=== PATIENT | female | born 1950 | race Caucasian/White ===

== ENCOUNTER → 2016-10-18 | Outpatient (CLI) | payer MEDICARE, BC ==
--- NOTE | 2016-10-18 09:13 | MR ---
MRI CERVICAL SPINE: MRI LUMBAR SPINE: CLINICAL HISTORY: Cervicalgia, cervical disc degeneration C5-C6 level, cervical disc degeneration C6- C7 level, cervical region spondylolisthesis, spondylosis without myelopathy cervical region all per o rder. Low back pain, lumbar radiculopathy, lumbar region intervertebral disc degeneration, lumbar reg ion spondylolisthesis, and lumbosacral regions spondylosis without myelopathy all per order. Headache with neck pain and stiffness for years causing pain or weakness in both arms per patient, history of whiplash injury. Low back pain and stiffness for 4 months causing pain into bilateral lower extremit ies diffusely per patient. TECHNIQUE: Multiplanar, multisequence imaging of the cervical and lumbar spine are performed without IV contrast. COMPARISON: CT abdomen and pelvis January 07, 2013. FINDINGS: C-SPINE: Sagittal images of the cervical spine show the craniocervical junction to appear within normal limits . The cervical and upper thoracic spinal cord is normal in course, caliber, and signal. There is str aightening of cervical spine with slight grade 1 retrolisthesis of C5 on C6. Slight dextroconvex scol iotic positioning is present centered near the cervical thoracic junction. The vertebral body height s are normal. There is mild to moderate disc space narrowing C5-C6 and C6-C7 levels. Mild to moderate anterior spurring is present at these levels. The bone marrow signal intensity is within normal limi ts. Axial images show the C2-C3 level to appear within normal limits. Axial images at C3-C4 level show uncovertebral facet degenerative changes bilaterally causing mild to moderate bilateral neural foraminal narrowing. Axial images at C4-C5 level show uncovertebral facet degenerative changes bilaterally causing mild to moderate left-sided neural foraminal narrowing. There is focal left paracentral disc protrusion effa cing anterolateral thecal sac also identified. Right-sided neural foramen is patent. Axial images at the C5-C6 level shows small broad-based central disc protrusion mildly effacing anter ior thecal sac, there is mild left-sided neural foraminal narrowing seen. Right-sided neural foramen is patent. Axial images at C6-C7 level show broad-based left paracentral disc protrusion mildly effacing anterio r thecal sac and causing moderate left-sided neural foraminal narrowing. Right-sided neural foramen i s patent. Axial images at C7-T1 level are felt within normal limits. IMPRESSION: Loss of normal cervical curvature with multilevel degenerative changes seen most promine nt in mid to lower cervical spine as detailed above. L-SPINE: FINDINGS: Sagittal images of the lumbar spine show vertebral body heights and alignment to appear sat isfactory. Multilevel disc desiccation is present. There is moderate disc space narrowing L4-L5 level most pronounced right of midline. Mild to moderate spurring with heterogeneous increased T1 and T2 s ignal consistent with Modic type II degenerative changes seen anteriorly. Posterior disc herniation i s seen at this level on sagittal images effacing anterior thecal sac. The conus medullaris is normal in position and signal ending at inferior L1 vertebral body level. Axial images show at T12-L1, L1-L2, and L2-L3 levels all to appear within normal limits. Axial images at L3-L4 level show mild to moderate broad disc bulge with slightly more prominent left lateral protrusion component minimally effacing the anterior thecal sac. There is mild facet degenera tive changes and ligamentum flavum hypertrophy. There is mild left-sided neural foraminal narrowing. Right-sided neural foramen is patent. Axial images at the L4-L5 level show mild to moderate facet degenerative changes and ligamentum flavu m hypertrophy effacing the posterior lateral thecal sac. There is broad-based right paracentral/dinorah inal disc protrusion effacing the anterolateral thecal sac. There is mild left-sided anterior inferio r neural foraminal narrowing seen. There is more moderate right-sided neural foraminal narrowing note d. Effacement of extraforaminal right L4 nerve is suspected seen best on axial image 8. Axial images at the L5-S1 level show mild facet degenerative changes bilaterally. There is central di sc protrusion minimally effacing the anterior thecal sac. Bilateral neural foramina remain patent. Some small simple appearing parapelvic cysts are present centrally in the left kidney. IMPRESSION: Multilevel degenerative changes in the mid to lower lumbar spine as detailed above, most prominent findings are L4-L5 level where concentric disc herniation is believed to be effacing extraf oraminal right L4 nerve.
== END | disposition home or self-care (01) ==
LOC: RADMRIMAIN 08:05
PROVIDERS: ATTEND Orthopaedic Surgery Orthopaedic Surgery of the Spine
DX: M47.812 Spondylosis without myelopathy or radiculopathy, cervical region (principal); M51.26 Other intervertebral disc displacement, lumbar region; M47.817 Spondylosis without myelopathy or radiculopathy, lumbosacral region
CPT/HCPCS: 72141; 72148

== ENCOUNTER 2016-10-28 00:39 | Emergency (ER) | payer MEDICARE, BC ==
[2016-10-28 00:54] VITALS: TEMP 98.5
--- NOTE | 2016-10-28 01:39 | ED ---
Abdominal Pain HPI - General Chief Complaint: Abdominal Pain Stated Complaint: Abdominal Pain Time Seen by Provider: 10/28/16 00:56 Source: patient, RN notes reviewed Mode of arrival: ambulatory Limitations: no limitations - History of Present Illness Initial Comments: Patient is a 65-year-old female presents to the emergency room for evaluation of abdominal pain. Patient states she hasn't had a normal bowel movement since Friday or . Patient states the past few days she's been having sharp /cramping diffuse abdominal pain. Patient also states that she has a history of diverticulitis. Patient states her last episode of diverticulitis was in June. Patient states she is nauseous but denies any vomiting. Patient states that she went to bed and woke up in the middle the night with intense sharp pain in her abdomen. Patient denies pain or burning during urination, trouble urinating or blood in the urine. Patient denies back pain. Patient denies chest pain or shortness of breath. Patient denies any fevers or chills. Patient states she's been drinking a lot of water with no relief of symptoms. Patient states she took MiraLAX 2 days ago with no relief of symptoms. Patient states usually takes Citrucel at night. Patient states she has a history of hysterectomy. Patient denies any other abdominal surgeries. Patient denies history of bowel obstructions. - Related Data Home Medications Medication Instructions Recorded Confirmed Aspirin 81 mg PO WEEKLY 04/22/14 06/29/16 Estradiol 0.5 mg PO DAILY 04/22/14 06/29/16 Levothyroxine Sodium [Synthroid] 125 mcg PO DAILY 04/22/14 06/29/16 Omeprazole [PriLOSEC] 20 mg PO AC-BRKFST 04/22/14 06/29/16 Simvastatin [Zocor] 40 mg PO HS 04/22/14 06/29/16 Ibuprofen [Motrin] 200 - 400 mg PO Q6HR PRN 04/27/14 06/29/16 Previous Rx's Medication Instructions Recorded Butalbital/Aspirin/Caffeine 1 each PO Q4-6H PRN #20 capsule 06/29/16 [Fiorinal 50-325-40 mg Capsule] Ondansetron Odt [Zofran ODT] 4 mg PO Q8HR PRN #5 tab 10/15/16 Allergies Allergy/AdvReac Type Severity Reaction Status Date / Time Sulfa (Sulfonamide Allergy Rash/Hives Verified 10/28/16 00:54 Antibiotics) Review of Systems ROS Statement: Those systems with pertinent positive or pertinent negative responses have been documented in the HPI. ROS Other: All systems not noted in ROS Statement are negative. Past Medical History Past Medical History: CVA/TIA, Hyperlipidemia Additional Past Medical History / Comment(s): Diverticulitis History of Any Multi-Drug Resistant Organisms: None Reported Past Surgical History: Hysterectomy Additional Past Surgical History / Comment(s): Laparoscopy for adhesions and scar tissue; right ovary and tube removal for ovarian cyst Past Psychological History: No Psychological Hx Reported Smoking Status: Never smoker Past Alcohol Use History: Rare Past Drug Use History: None Reported General Exam - General Exam Comments Initial Comments: Laying in exam room, no acute distress. Limitations: no limitations General appearance: alert, in no apparent distress Head exam: Present: atraumatic, normocephalic, normal inspection Eye exam: Present: normal appearance ENT exam: Present: normal exam Neck exam: Present: normal inspection Respiratory exam: Present: normal lung sounds bilaterally. Absent: respiratory distress Cardiovascular Exam: Present: regular rate, normal rhythm, normal heart sounds GI/Abdominal exam: Present: soft, tenderness (LLQ). Absent: distended, guarding , rebound, rigid Extremities exam: Present: normal inspection Back exam: Present: normal inspection Neurological exam: Present: alert, oriented X3, CN II-XII intact, normal gait Psychiatric exam: Present: normal affect, normal mood Skin exam: Present: warm, dry, intact, normal color. Absent: rash Course Vital Signs 10/28/16 10/28/16 00:51 03:50 Temperature 98.5 F Pulse Rate 93 80 Respiratory 18 16 Rate Blood Pressure 145/100 127/90 O2 Sat by Pulse 98 97 Oximetry Medical Decision Making - Medical Decision Making Patient is a 65-year-old female presents to the emergency room for evaluation of abdominal pain and constipation. Labs show no concerning findings. KUB and CT show no acute findings. Patient's symptoms have significantly improved after enema. Patient states she is feeling better and would like to be discharged. Will discharge patient home and advised to drink plenty of water and continue with her at home medications. Patient states she understands everything that was discussed with her. Return parameters discussed. Case discussed with Dr. Velazquez. - Lab Data Result diagrams: 10/28/16 01:28 10/28/16 01:28 Lab Results 10/28/16 10/28/16 10/28/16 Range/Units 01:28 01:28 01:28 WBC 4.2 (3.8-10.6) k/uL RBC 4.40 (3.80-5.40) m/uL Hgb 13.1 (11.4-16.0) gm/dL Hct 39.5 (34.0-46.0) % MCV 89.7 (80.0-100.0) fL MCH 29.8 (25.0-35.0) pg MCHC 33.2 (31.0-37.0) g/dL RDW 12.5 (11.5-15.5) % Plt Count 229 (150-450) k/uL Neutrophils % 69 % Lymphocytes % 22 % Monocytes % 5 % Eosinophils % 2 % Basophils % 0 % Neutrophils # 2.9 (1.3-7.7) k/uL Lymphocytes # 0.9 L (1.0-4.8) k/uL Monocytes # 0.2 (0-1.0) k/uL Eosinophils # 0.1 (0-0.7) k/uL Basophils # 0.0 (0-0.2) k/uL Sodium 136 L (137-145) mmol/L Potassium 4.0 (3.5-5.1) mmol/L Chloride 102 (98-107) mmol/L Carbon Dioxide 26 (22-30) mmol/L Anion Gap 8 mmol/L BUN 13 (7-17) mg/dL Creatinine 0.70 (0.52-1.04) mg/dL Est GFR (MDRD) Af Amer >60 (>60 ml/min/1.73 sqM) Est GFR (MDRD) Non-Af >60 (>60 ml/min/1.73 sqM) Glucose 118 H (74-99) mg/dL Calcium 8.3 L (8.4-10.2) mg/dL Total Bilirubin 0.9 (0.2-1.3) mg/dL AST 21 (14-36) U/L ALT 32 (9-52) U/L Alkaline Phosphatase 71 (38-126) U/L Total Protein 5.8 L (6.3-8.2) g/dL Albumin 3.1 L (3.5-5.0) g/dL Amylase 37 (30-110) U/L Lipase 88 (23-300) U/L Urine Color Yellow Urine Appearance Clear (Clear) Urine pH 5.5 (5.0-8.0) Ur Specific Lindstrom 1.017 (1.001-1.035) Urine Protein Trace H (Negative) Urine Glucose (UA) Negative (Negative) Urine Ketones Negative (Negative) Urine Blood Small H (Negative) Urine Nitrate Negative (Negative) Urine Bilirubin Negative (Negative) Urine Urobilinogen <2.0 (<2.0) mg/dL Ur Leukocyte Esterase Trace H (Negative) Urine RBC 4 (0-5) /hpf Urine WBC 2 (0-5) /hpf Ur Squamous Epith Cells 1 (0-4) /hpf Urine Mucus Rare H (None) /hpf - Radiology Data Radiology results: report reviewed, image reviewed Disposition Clinical Impression: Abdominal pain, Constipation Disposition: HOME SELF-CARE Condition: Good Instructions: Constipation (ED), High Fiber Diet (ED) Additional Instructions: Drink plenty of water. Continue with at home medications. Please follow up with primary care provider in 1-2 days. If any new symptom arises or symptoms worsen, return to ER as soon as possible. Referrals: Clarence Bower MD [Primary Care Provider] - 1-2 days Time of Disposition: 03:37
[2016-10-28 01:43] LABS: Appearance,Urine Clear (Clear); Bilirubin,Urine Negative (Negative); Glucose,Urine (UA) Negative (Negative); Ketones,Urine Negative (Negative); Leukocyte Esterase,Urine Trace (Negative); Mucus,Urine Rare /hpf; Nitrite,Urine Negative (Negative); PH, Urine 5.5 (5.0-8.0); Particle Count 3973; Protein,Urine Trace (Negative); RBC,Urine 4 /hpf (0-5); Specific Gravity,Urine 1.017 (1.001-1.035); Squamous Epithelial Cell,Urine 1 /hpf (0-4); UA Billing (MACRO vs. MICRO) MICRO; Urobilinogen,Urine <2.0 mg/dL (<2.0); WBC,Urine 2 /hpf (0-5)
[2016-10-28 01:48] LABS: ALT 32 U/L (9-52); AST 21 U/L (14-36); Alkaline Phosphatase 71 U/L (38-126); Amylase 37 U/L (30-110); Anion Gap 8 mmol/L; Basophils % (A) 0 %; Blood Urea Nitrogen 13 mg/dL (7-17); CH 30.2; CHCM 33.8; Calcium 8.3 mg/dL (8.4-10.2); Carbon Dioxide 26 mmol/L (22-30); Chloride 102 mmol/L (98-107); Eosinophils # (A) 0.1 k/uL (0-0.7); Eosinophils % (A) 2 %; Glucose 118 mg/dL (74-99); HCT 39.5 % (34.0-46.0); HDW 2.35; HGB 13.1 gm/dL (11.4-16.0); Luc # (Auto) 0.07; Luc % (Auto) 2; Lymphocytes # (A) 0.9 k/uL (1.0-4.8); Lymphocytes % (A) 22 %; MCH 29.8 pg (25.0-35.0); MCHC 33.2 g/dL (31.0-37.0); MCV 89.7 fL (80.0-100.0); Mean Platelet Volume 6.3; Monocytes # (A) 0.2 k/uL (0-1.0); Monocytes % (A) 5 %; Neutrophils # (A) 2.9 k/uL (1.3-7.7); Neutrophils % (A) 69 %; Non-African American GFR(MDRD) >60 (>60 ml/min/1.73 sqM); RDW 12.5 % (11.5-15.5); Sodium 136 mmol/L (137-145); Total Bilirubin 0.9 mg/dL (0.2-1.3); Total Protein 5.8 g/dL (6.3-8.2); WBC 4.2 k/uL (3.8-10.6); WBC (Perox) 4.45
--- NOTE | 2016-10-28 01:48 | XR ---
EXAMINATION TYPE: XR KUB DATE OF EXAM: 10/28/2016 1:44 AM COMPARISON: 01/07/2013 HISTORY: Abdominal pain TECHNIQUE: 2 views FINDINGS: There is no sign of intestinal obstruction or pneumoperitoneum. Fecal pattern is normal. Th ere are multiple surgical clips in the abdomen. There are no pathologic calcifications over the kidne ys. Lung bases are clear. IMPRESSION: Nonacute abdomen. No change compared to old exam.
[2016-10-28] MEDS ORDERED: RX INFO: IV CONTRAST WAS GIVEN 1 EACH MISC MISCELLANE PRN (02:13)
--- NOTE | 2016-10-28 02:59 | CT ---
EXAMINATION TYPE: CT abdomen pelvis w con DATE OF EXAM: 10/28/2016 2:48 AM COMPARISON: 01/07/2013 HISTORY: mid to low abd pain CT DLP: 1149.00 mGycm Automated exposure control for dose reduction was used. TECHNIQUE: Helical acquisition of images was performed from the lung bases through the pelvis. CONTRAST: Performed without Oral Contrast and with IV Contrast, patient injected with 100 mL of Omnipaque 300. FINDINGS: There is minimal atelectasis at the lung bases. There is no pericardial effusion. There is no pleural effusion. Liver spleen pancreas gallbladder appear normal. Bile ducts are not dilated. There is no sign of gall bladder wall thickening. There is no adrenal mass. Kidneys show satisfactory contrast opacification. There is no hydronephrosi s. There is no retroperitoneal adenopathy. There is no ascites. Bladder distends smoothly. There is n o evidence of a pelvic mass. There are sigmoid diverticula. There is minimal stranding around the sig moid colon. The small bowel appears normal. There are spondylotic changes in the lumbar spine with L4 -5 disc space narrowing. There is no compression fracture. IMPRESSION: THERE ARE CHANGES OF MINIMAL SIGMOID DIVERTICULITIS THAT ARE SIGNIFICANTLY IMPROVED COMPARED TO OLD C T SCAN OF 01/07/2013. NO ABSCESS. HYSTERECTOMY NOTED.
[2016-10-28 03:51] VITALS: BP 127/90; PULSE 80; RESP 16
[2016-10-28] MEDS ORDERED: ACETAMINOPHEN TAB 325 MG TAB PO STA (04:03)
== END 2016-10-28 04:20 | disposition home or self-care (01) ==
LOC: EC 00:39
DX: K59.00 Constipation, unspecified (principal); R10.9 Unspecified abdominal pain; Z88.2 Allergy status to sulfonamides; Z79.82 Long term (current) use of aspirin; Z79.899 Other long term (current) drug therapy; E78.5 Hyperlipidemia, unspecified; Z90.710 Acquired absence of both cervix and uterus
CPT/HCPCS: 99284; 36415; 80053; 82150; 83690; 85025; 81001; 74000; 74177; Q9967

== ENCOUNTER → 2016-12-03 | Outpatient (CLI) | payer MEDICARE, BC ==
--- NOTE | 2016-12-03 22:35 | BD ---
EXAMINATION TYPE: MG DEXA axial skeleton. DATE OF EXAM: 12/03/2016 9:53 AM COMPARISON: NONE CLINICAL HISTORY: 65-year-old female age-related osteoporosis Height: 64 IN Weight: 148 LBS FRAX RISK QUESTIONS: Alcohol (3 or more units per day): NO Family History (Parent hip fracture): NO Glucocorticoids (More than 3mos): NO (Ex: prednisone, prednisolone, methylprednisolone, dexamethasone, and hydrocortisone). History of Fracture in Adulthood: NO Secondary Osteoporosis: 1. Type 1 Diabetes: NO 2. Hyperthyroidism: NO 3. Menopause before 45: NO 4. Malnutrition: NO 5. Chronic liver disease: NO Rheumatoid Arthritis: NO Current Tobacco Use: NO RISK FACTORS HISTORY OF: Active: YES Diet low in dairy products/other sources of calcium: YES Postmenopausal woman: AGE 52 Take estrogen and/or progesterone medications: YES How long: SINCE AGE 52 MEDICATIONS: Thyroid Medications: YES Which medication: Levothyroxine How Long: SINCE AGE 30 Additional Medications: VIT D,DICYCLOMINE,ESTRADIOL, LEVOTHYROXINE, SIMVASTATIN, HCTZ, CITRUCEL, LIQU ID IODINE, MULTI VIT, VIT D, VIT E, LOW DOSE ASPIRIN EXAM MEASUREMENTS: Bone mineral densitometry was performed using the [employer] System. Bone mineral density as measured about the Lumbar spine is: ----- L1-L4(G/cm2): 1.141 T Score Values are as follows: ----- L2: -0.5 ----- L3: -0.1 ----- L4: 0.7 ----- L1-L4: -0.3 Bone mineral density has: Decreased -3.0% since study of: 04/26/2014 Bone mineral density about the R hip (g/cm2): 0.910 Bone mineral density about the L hip (g/cm2): 0.883 T Score values are as follows: -----R Neck: -0.9 -----L Neck: -1.1 -----R Intertrochanter: -0.6 -----L Intertrochanter: -0.4 Bone mineral density has: Decreased -2.0% since study of: 04/26/2014 IMPRESSION: Osteopenia as indicated by T score values within the lumbar spine and left hip. There is slightly increased risk of fracture and the patient may be considered for treatment. Re-Screen 2-5 years. NOTE: T-SCORE=SD OF THE YOUNG ADULT MEAN.
== END ==
LOC: RADBDWWP 09:51
PROVIDERS: ATTEND Internal Medicine Geriatric Medicine
DX: M85.89 Other specified disorders of bone density and structure, multiple sites (principal)
CPT/HCPCS: 77080

== ENCOUNTER 2017-05-29 07:56 | Day surgery (SDC) | payer MEDICARE, BC ==
[~2017-05-29 07:56] MED LIST: DEXAMETHASONE SOD PHOSPHATE 10 MG/ML 1 ML VIAL IV ONE; DEXAMETHASONE SOD PHOSPHATE 4 MG/ML 1 ML VIAL IV ONE; FAMOTIDINE 20 MG/2 ML VIAL IV ONE; HYDROmorphone 1 MG/ML 1 ML SYRINGE IVP PRN; LACTATED RINGERS 1,000 ML IV SCH; LIDOCAINE 1% 20 ML VIAL (10MG/ML) FOR IV START INTRADERMA PRN; ONDANSETRON 4 MG/2 ML VIAL IVP ONE; SCOPOLAMINE 1.5MG/72HR PATCH TRANSDERM ONE; ceFAZolin 2 GM in SODIUM CHLORIDE 0.9% 100 ML IVPB ONE
[2017-05-29] MEDS: OXYMETAZOLINE 0.05% NASL SPRAY 1 SPRAY BOTTLE NASAL ONE ×5 (08:35→08:55)
[2017-05-29] MEDS ORDERED: SUCCINYLCHOLINE CHLORIDE 100 MG/5 ML SYR IV ONE (09:36)
[2017-05-29] MEDS ORDERED: LIDOCAINE 1% INJ 10MG/ML (20 ML MDV) ONE (09:36)
[2017-05-29] MEDS ORDERED: fentaNYL (PF) 50 MCG/ML 2 ML AMP ONE (09:36)
[2017-05-29] MEDS ORDERED: MIDAZOLAM 2 MG/2 ML VIAL ONE (09:36)
[2017-05-29] MEDS ORDERED: PROPOFOL 10 MG/ML 20 ML VIAL IV ONE (09:36)
[2017-05-29] MEDS ORDERED: LIDOCAINE 2%-EPI 1:100,000 20 ML VIAL SQ ONE ×2 (10:03)
[2017-05-29] MEDS ORDERED: EPINEPHrine 1 MG/ML (MDV) 30 ML VIAL IRRIGATION ONE (10:03)
[2017-05-29] MEDS ORDERED: ARTIFICIAL TEARS OINTMENT 3.5 GM TUBE LEFT EYE ONE (10:04)
[2017-05-29] MEDS ORDERED: FLUORESCEIN STRIPS 1 MG STRIP MISCELLANE ONE (10:04)
[2017-05-29] MEDS ORDERED: BACITRACIN 500 UNIT/GM OINT 28.4 GM TUBE TOPICAL ONE (10:59)
[2017-05-29 11:13] VITALS: TEMP 97.6
[2017-05-29] MEDS ORDERED: LACTATED RINGERS 1,000 ML IV ONE (11:21)
--- NOTE | 2017-05-29 11:34 | P.OP ---
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 Deviated nasal septum Synechiae left maxillary sinus with chronic maxillary sinusitis Postoperative Diagnosis: Same Patient had previous removal of orbital bone with exposure of orbital fat from previous surgery Procedure(s) Performed: Left endoscopic balloon dacryocystorhinostomy Septoplasty Lysis and removal of significant left intranasal synechiae Left endoscopic total ethmoidectomy Left endoscopic maxillary antrostomy Anesthesia: GETA Surgeon: David Rawls Estimated Blood Loss (ml): 20 Pathology: other (Sinonasal) Condition: stable Disposition: PACU Indications for Procedure: This patient presented to the office with a chronic acquired nasolacrimal duct obstruction with epiphora. She had a previous surgery there was unsuccessful. She complains of daily constant left-sided epiphora blurred vision tearing etc. she has chronic conjunctival erythema would like to have this repaired. She was found have a left septal deviation causing airway impingement. Patient also had scar neck left-sided ethmoid and maxillary sinusitis. White amount of synechiae was seen. The patient had orbital bone removed previously with exposure of the left orbital fat pad. Operative Findings: Patient had a blocked left nasal lacrimal duct with synechiae and orbital fat exposure from previous surgery. There was a line in the cornea prior to surgery that was noted. This was below the pupil on the left side. This was noted before surgery. The patient had thick white and yellow purulence suctioned from the ethmoid sinuses and maxillary sinuses on the left side. Large amount of scar was seen at the nasal lacrimal duct Description of Procedure: This patient was taken to the operative room and placed in the supine position. A general inhalation anesthetic was administered to the patient by mask and subsequently intubated with a cuffed endotracheal tube by the department of anesthesia with a functioning IV line in place. The patient was monitored throughout the entire case by the department of anesthesia. The septum and left lateral nasal wall were injected with lidocaine 1% with epinephrine 1 100, 000. A caudal incision was made over the caudal portion of the left septum down to the mucoperichondrium. A mucoperichondrial flap was developed to the extent of visualization and a crossover incision was made with for the mucoperichondrial flap development to the extent of visualization on the contralateral side. We removed redundant strips of septal cartilage the close the incision with a 4 rapid Vicryl in a quilting stitch was used to reapproximate the septal flaps and was sutured fixated to the vomerian groove. After the septum was straightened we entered the nose with endoscopes and we removed a large amount of synechiae between the middle turbinate and the lateral nasal wall. We discovered that there was orbital bone that was missing exposure of orbital fat was noted from her previous surgery. We then did a total ethmoidectomy removal all septations along the ethmoid on the left side with endoscopic visualization and a large amount of thick purulence was removed from the ethmoid sinuses. After all septations were removed on the left ethmoid. We then opened the maxillary sinuses which was also scarred and filled with purulence. After the maxillary sinuses and ethmoid sinuses were opened on the left side with a microdebrider and endoscopic visualization we then dilated the punctum on the left side and inserted increasing a lacrimal catheter is we then extended into the nose. We took down the scar tissue open the nasolacrimal sac and then inserted Crook tube on the left side. We utilized a balloon catheter and dilated the nasolacrimal duct at the lacrimal sac with a 5 mm balloon. We elevated placed for over 1 minute. This was done 3 times. We utilized 2-0 silk suture to tie the Crook tube and placed back in position trachea we inserted propel on the left side. [place] was placed. We did insert bilateral Merocel sponge packs to prevent any bleeding. The patient tolerated this well and follow-up will be in the office in 1 week. To summarize, we did a septoplasty, did a total ethmoidectomy on the left side and maxillary antrostomy on the left side. We removed a large amount of synechiae and did a endoscopic dacryocystorhinostomy and balloon dilatation. This was done under endoscopic visualization. Patient tolerated this well and was taken to postanesthesia recovery in excellent condition.
[2017-05-29 12:08] VITALS: BP 142/73
[2017-05-29 12:45] VITALS: PULSE 74; RESP 18
== END 2017-05-29 12:59 | disposition home or self-care (01) ==
LOC: OR 07:56
PROVIDERS: ATTEND Otolaryngology
DX: H04.552 Acquired stenosis of left nasolacrimal duct (principal); J32.2 Chronic ethmoidal sinusitis; J32.0 Chronic maxillary sinusitis; J34.2 Deviated nasal septum; J34.89 Other specified disorders of nose and nasal sinuses; E78.00 Pure hypercholesterolemia, unspecified; E07.9 Disorder of thyroid, unspecified; I10 Essential (primary) hypertension; Z86.73 Personal history of transient ischemic attack (TIA), and cerebral infarction without residual deficits; Z79.899 Other long term (current) drug therapy; Z79.82 Long term (current) use of aspirin; Z87.891 Personal history of nicotine dependence; Z88.2 Allergy status to sulfonamides; Z91.048 Other nonmedicinal substance allergy status
CPT/HCPCS: 88305; 88300; 31255; 31256; 31239; 30520; C1726; C2625; J0171; J2250; J1100; J0690; J2405; J2001; J3010; J0330; J2704

== ENCOUNTER 2017-05-29 17:57 | Emergency (ER) | payer MEDICARE, BC ==
[2017-05-29 18:10] VITALS: RESP 18
--- NOTE | 2017-05-29 18:58 | ED ---
General Adult HPI - General Chief complaint: ENT Stated complaint: Nose Bleed Time Seen by Provider: 05/29/17 18:38 Source: patient, family, RN notes reviewed, old records reviewed Mode of arrival: ambulatory Limitations: no limitations - History of Present Illness Initial comments: Chief complaint history of present illness this is a 66-year-old female. Pleasant. The patient had tear duct surgery this morning by Dr. Post. Currently she has a mustache bandage on which is red with blood but not dripping. She also reports that she has sensation of small amounts of blood which she can spit up which should be less than a half cc each time onto a piece of tissue. There is not excessive bleeding at all. - Related Data Home Medications Medication Instructions Recorded Confirmed Aspirin 81 mg PO WEEKLY 04/22/14 05/29/17 Estradiol 0.5 mg PO QAM 04/22/14 05/29/17 Levothyroxine Sodium [Synthroid] 100 mcg PO QAM 04/22/14 05/29/17 Simvastatin [Zocor] 40 mg PO HS 04/22/14 05/29/17 Ibuprofen [Motrin] 200 - 400 mg PO Q6HR PRN 04/27/14 05/29/17 Atenolol [Tenormin] 12.5 mg PO QAM 05/28/17 05/29/17 Cholecalciferol (Vitamin D3) 2,000 unit PO QAM 05/28/17 05/29/17 [Vitamin D3] Iodine 1,830 mcg PO Q48H 05/28/17 05/29/17 Methylcellulose (with Sugar) 2 dose PO 05/28/17 05/29/17 [Citrucel Powder] Multivitamins, Thera [Multivitamin 1 tab PO QAM 05/28/17 05/29/17 (formulary)] Triamterene-Hctz 37.5-25Mg 1 tab PO QAM 05/28/17 05/29/17 [Dyazide 37.5-25 Capsule] Previous Rx's Medication Instructions Recorded Amoxicillin/Potassium Clav 1 each PO Q12HR #20 tab 05/29/17 [Augmentin 875-125 Tablet] Hydrocodone/Acetaminophen [Ramah 1 - 2 each PO Q6HR PRN #40 tab 05/29/17 5-325] predniSONE 20 mg PO DIRECTED #15 tab 05/29/17 Allergies Allergy/AdvReac Type Severity Reaction Status Date / Time Sulfa (Sulfonamide Allergy Rash/Hives Verified 05/29/17 18:10 Antibiotics) adhesive AdvReac Rash/Hives Verified 05/29/17 18:10 nickel AdvReac Rash/Hives Verified 05/29/17 18:10 colbalt dichloride AdvReac Rash/Hives Uncoded 05/29/17 18:10 Review of Systems ROS Statement: Those systems with pertinent positive or pertinent negative responses have been documented in the HPI. Review of systems patient has a headache obviously associated with the recent surgery she does have pain medication to take at home. She has an appointment to follow-up with the surgeon in several days. She was concerned that maybe she should not be bleeding at all from her nose. She has very small amounts of blood going posteriorly which she spitting up. No bleeding anteriorly. She has a mustache bandage. Past medical problems diverticulitis. ALLERGIES sulfa and adhesive and medical. ROS Other: All systems not noted in ROS Statement are negative. Past Medical History Past Medical History: CVA/TIA, Hyperlipidemia Additional Past Medical History / Comment(s): Diverticulitis History of Any Multi-Drug Resistant Organisms: None Reported Past Surgical History: Hysterectomy Additional Past Surgical History / Comment(s): Laparoscopy for adhesions and scar tissue; right ovary and tube removal for ovarian cyst Past Psychological History: No Psychological Hx Reported Smoking Status: Never smoker Past Alcohol Use History: Rare Past Drug Use History: None Reported General Exam - General Exam Comments Initial Comments: Pertinent to the patient's visit she is here because she had a small amount of blood that she spit up after having had tear duct surgery this morning. Very small amount of blood mixed with normal colored phlegm underlying tissue. She does have pain medication to handle the pain she has. She balance is good. Vital signs temp 96.8 pulse 94 respiratory rate 18 pulse ox on percent room air blood pressure 166/76. Eyes are normal. Extraocular movements appear normal. No retro-bleeding on the tear ducts into the eyes. She has expansile swabs in the nose with balloon dilatation of the tear ducts according to the paperwork after the surgery. There is blood on the mustache bandage but not dripping. She can taste a little bit of blood and spits onto a napkin and is just mildly pink tainted phlegm. Discussed the surgery, the likelihood that she would have as she is seeing a small amount of blood posteriorly. Advised that if she has mouth full of blood to come the emergency room immediately. Follow-up with her ENT specialist as directed Limitations: no limitations Course Vital Signs 05/29/17 18:07 Temperature 96.8 F L Pulse Rate 94 Respiratory 18 Rate Blood Pressure 166/76 O2 Sat by Pulse 100 Oximetry Medical Decision Making - Medical Decision Making Patient understands why she had a small amount of blood posteriorly that she is spitting up. 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 Disposition Clinical Impression: Postop check Disposition: HOME SELF-CARE Condition: Stable Instructions: Postoperative Bleeding (ED) Additional Instructions: Place Afrin nasal drops on the nasal bandage several drops every couple of hours. Follow-up with ENT. If you develop a large amount of bleeding return emergency room Referrals: Clarence Bower MD [Primary Care Provider] - 1-2 days Time of Disposition: 18:57
[2017-05-29 19:22] VITALS: BP 172/79; PULSE 88; TEMP 97.9
== END 2017-05-29 19:22 | disposition home or self-care (01) ==
LOC: EC 17:57
DX: R04.0 Epistaxis (principal); E78.5 Hyperlipidemia, unspecified; Z86.73 Personal history of transient ischemic attack (TIA), and cerebral infarction without residual deficits; Z79.82 Long term (current) use of aspirin; Z79.899 Other long term (current) drug therapy; Z88.2 Allergy status to sulfonamides; Z88.8 Allergy status to other drugs, medicaments and biological substances; Z91.048 Other nonmedicinal substance allergy status; Z98.890 Other specified postprocedural states
CPT/HCPCS: 99283

== ENCOUNTER → 2017-06-05 | Outpatient (CLI) | payer MEDICARE, BC ==
--- NOTE | 2017-06-06 11:02 | MM ---
Reason for exam: screening (asymptomatic). Last mammogram was performed 1 year ago. History: Patient is postmenopausal and is nulliparous. Benign US left guided mammotome of the left breast, October 12, 2008. Benign left US cyst aspiration of the left breast, June 20, 2005. Took estrogen for 4 years 4 months beginning at age 54. Took progesterone for 4 years 4 months beginning at age 54. Physical Findings: A clinical breast exam by your physician is recommended on an annual basis and results should be correlated with mammographic findings. MG 3D Screening Mammo W/Cad Bilateral CC and MLO view(s) were taken. Prior study comparison: June 04, 2016, bilateral MG 3d screening mammo w/cad. March 02, 2015, bilateral MG screening mammo w CAD. The breast tissue is heterogeneously dense. This may lower the sensitivity of mammography. Benign calcifications. Previous mammotome biopsy in the left breast. ASSESSMENT: Benign, BI-RAD 2 RECOMMENDATION: Routine screening mammogram of both breasts in 1 year.
== END | disposition home or self-care (01) ==
LOC: RADMAMWWP 09:36
PROVIDERS: ATTEND Internal Medicine Geriatric Medicine
DX: Z12.31 Encounter for screening mammogram for malignant neoplasm of breast (principal)
CPT/HCPCS: 77063; G0202

== ENCOUNTER → 2018-08-05 | Outpatient (CLI) | payer MEDICARE, BC ==
--- NOTE | 2018-08-10 10:52 | MM ---
Reason for exam: screening (asymptomatic). Last mammogram was performed 1 year and 2 months ago. History: Patient is postmenopausal, history of other cancer, and is nulliparous. Benign US left guided mammotome of the left breast, October 12, 2008. Benign left US cyst aspiration of the left breast, June 20, 2005. Taking estrogen for 4 years 4 months beginning at age 54. Taking progesterone for 4 years 4 months beginning at age 54. Physical Findings: A clinical breast exam by your physician is recommended on an annual basis and results should be correlated with mammographic findings. MG 3D Screening Mammo W/Cad Bilateral CC and MLO view(s) were taken. Prior study comparison: June 05, 2017, bilateral MG 3d screening mammo w/cad. June 04, 2016, bilateral MG 3d screening mammo w/cad. The breast tissue is heterogeneously dense. This may lower the sensitivity of mammography. No suspicious abnormality. No significant changes when compared with prior studies. ASSESSMENT: Negative, BI-RAD 1 RECOMMENDATION: Routine screening mammogram of both breasts in 1 year.
== END | disposition home or self-care (01) ==
LOC: RADMAMWWP 09:11
PROVIDERS: ATTEND Internal Medicine Geriatric Medicine
DX: Z12.31 Encounter for screening mammogram for malignant neoplasm of breast (principal)
CPT/HCPCS: 77063; 77067

== ENCOUNTER 2018-11-02 08:19 | Emergency (ER) | payer MEDICARE, BC ==
[2018-11-02] MEDS ORDERED: SODIUM CHLORIDE 0.9% 1,000 ML IV STA (08:38)
--- NOTE | 2018-11-02 08:41 | ED ---
Abdominal Pain HPI - General Chief Complaint: Abdominal Pain Stated Complaint: Constipated, Abd Pain Time Seen by Provider: 11/02/18 08:30 Source: patient, RN notes reviewed Mode of arrival: ambulatory Limitations: no limitations - History of Present Illness Initial Comments: 67-year-old female presents emergency Department chief complaint of lower abdominal pain. Patient states she's had pain since . Patient states pain is progressed and was worse this morning. Patient states that she's had no nausea vomiting or diarrhea. She has felt constipated. Patient does admit that she has severe diverticulosis in which she's had multiple colonoscopies for though she states that they have not always been able to completed secondary to strictures. Patient denies any rectal bleeding, mucousy stools. She has no dysuria no hematuria. Denies any fever chills, night sweats. - Related Data Home Medications Medication Instructions Recorded Confirmed Estradiol 0.5 mg PO QAM 04/22/14 11/02/18 Simvastatin [Zocor] 40 mg PO HS 04/22/14 11/02/18 Multivitamins, Thera [Multivitamin 1 tab PO DAILY 05/28/17 11/02/18 (formulary)] Levothyroxine Sodium [Levoxyl] 100 mcg PO DAILY 05/29/17 11/02/18 Psyllium Husk [Metamucil] 0.8 gm PO HS 05/29/17 11/02/18 Metoprolol Succinate (ER) [Toprol 12.5 mg PO DAILY 11/02/18 11/02/18 XL] Allergies Allergy/AdvReac Type Severity Reaction Status Date / Time adhesive Allergy Rash/Hives Verified 11/02/18 08:42 cobalt chloride Allergy Rash/Hives Verified 11/02/18 08:42 nickel Allergy Rash/Hives Verified 11/02/18 08:42 Sulfa (Sulfonamide Allergy Rash/Hives Verified 11/02/18 08:42 Antibiotics) Review of Systems ROS Statement: Those systems with pertinent positive or pertinent negative responses have been documented in the HPI. ROS Other: All systems not noted in ROS Statement are negative. Past Medical History Past Medical History: CVA/TIA, Hyperlipidemia Additional Past Medical History / Comment(s): Diverticulitis History of Any Multi-Drug Resistant Organisms: None Reported Past Surgical History: Hysterectomy Additional Past Surgical History / Comment(s): Laparoscopy for adhesions and scar tissue; right ovary and tube removal for ovarian cyst Past Psychological History: No Psychological Hx Reported Smoking Status: Never smoker Past Alcohol Use History: Rare Past Drug Use History: None Reported General Exam Limitations: no limitations General appearance: alert, in no apparent distress Head exam: Present: atraumatic, normocephalic, normal inspection Neck exam: Present: normal inspection, full ROM. Absent: tenderness, meningismus, lymphadenopathy Respiratory exam: Present: normal lung sounds bilaterally. Absent: respiratory distress, wheezes, rales, rhonchi, stridor Cardiovascular Exam: Present: regular rate, normal rhythm, normal heart sounds. Absent: systolic murmur, diastolic murmur, rubs, gallop, clicks GI/Abdominal exam: Present: soft, tenderness (Mild lower abdominal tenderness), normal bowel sounds. Absent: distended, guarding, rebound, rigid Neurological exam: Present: alert, oriented X3, CN II-XII intact Skin exam: Present: warm, dry, intact, normal color. Absent: rash Course Vital Signs 11/02/18 08:25 Temperature 98.2 F Pulse Rate 88 Respiratory 18 Rate Blood Pressure 121/79 O2 Sat by Pulse 100 Oximetry Medical Decision Making - Medical Decision Making 67-year-old female presented for abdominal pain, concerns for constipation and diverticulitis. Patient lab work which is unremarkable. Patient's x-ray shows moderate stool burden enema was given with relief of her symptoms. Patient will be discharged return parameters were discussed. - Lab Data Result diagrams: 11/02/18 08:55 11/02/18 08:55 Lab Results 11/02/18 11/02/18 11/02/18 Range/Units 08:55 08:55 08:55 WBC 8.2 (3.8-10.6) k/uL RBC 4.57 (3.80-5.40) m/uL Hgb 13.7 (11.4-16.0) gm/dL Hct 41.4 (34.0-46.0) % MCV 90.7 (80.0-100.0) fL MCH 30.1 (25.0-35.0) pg MCHC 33.2 (31.0-37.0) g/dL RDW 12.6 (11.5-15.5) % Plt Count 327 (150-450) k/uL Neutrophils % 69 % Lymphocytes % 21 % Monocytes % 6 % Eosinophils % 3 % Basophils % 0 % Neutrophils # 5.7 (1.3-7.7) k/uL Lymphocytes # 1.7 (1.0-4.8) k/uL Monocytes # 0.5 (0-1.0) k/uL Eosinophils # 0.2 (0-0.7) k/uL Basophils # 0.0 (0-0.2) k/uL Sodium 141 (137-145) mmol/L Potassium 4.6 (3.5-5.1) mmol/L Chloride 105 (98-107) mmol/L Carbon Dioxide 28 (22-30) mmol/L Anion Gap 8 mmol/L BUN 16 (7-17) mg/dL Creatinine 0.94 (0.52-1.04) mg/dL Est GFR (CKD-EPI)AfAm 73 (>60 ml/min/1.73 sqM) Est GFR (CKD-EPI)NonAf 63 (>60 ml/min/1.73 sqM) Glucose 108 H (74-99) mg/dL Calcium 9.4 (8.4-10.2) mg/dL Total Bilirubin 1.7 H (0.2-1.3) mg/dL AST 20 (14-36) U/L ALT 29 (9-52) U/L Alkaline Phosphatase 73 (38-126) U/L Total Protein 6.8 (6.3-8.2) g/dL Albumin 3.7 (3.5-5.0) g/dL Amylase 59 (30-110) U/L Lipase 124 (23-300) U/L Urine Color Yellow Urine Appearance Cloudy H (Clear) Urine pH 5.5 (5.0-8.0) Ur Specific [place] 1.026 (1.001-1.035) Urine Protein 1+ H (Negative) Urine Glucose (UA) Negative (Negative) Urine Ketones Negative (Negative) Urine Blood Small H (Negative) Urine Nitrite Negative (Negative) Urine Bilirubin Negative (Negative) Urine Urobilinogen <2.0 (<2.0) mg/dL Ur Leukocyte Esterase Small H (Negative) Urine RBC 7 H (0-5) /hpf Urine WBC 4 (0-5) /hpf Ur Squamous Epith Cells 20 H (0-4) /hpf Urine Bacteria Many H (None) /hpf Urine Mucus Many H (None) /hpf Disposition Clinical Impression: Abdominal pain, Constipation Disposition: HOME SELF-CARE Condition: Stable Instructions (If sedation given, give patient instructions): Constipation (DC) Additional Instructions: Please return to the Emergency Department if symptoms worsen or any other concerns. Is patient prescribed a controlled substance at d/c from ED?: No Referrals: Salazar Lozada MD [Primary Care Provider] - 1-2 days Time of Disposition: 10:16
[2018-11-02 09:12] LABS: Appearance,Urine Cloudy (Clear); Bacteria,Urine Many /hpf; Basophils % (A) 0 %; Bilirubin,Urine Negative (Negative); Blood,Urine Small (Negative); Color,Urine Yellow; Eosinophils # (A) 0.2 k/uL (0-0.7); Eosinophils % (A) 3 %; Glucose,Urine (UA) Negative (Negative); HCT 41.4 % (34.0-46.0); HGB 13.7 gm/dL (11.4-16.0); Ketones,Urine Negative (Negative); Leukocyte Esterase,Urine Small (Negative); Lymphocytes # (A) 1.7 k/uL (1.0-4.8); Lymphocytes % (A) 21 %; MCH 30.1 pg (25.0-35.0); MCHC 33.2 g/dL (31.0-37.0); MCV 90.7 fL (80.0-100.0); Mean Platelet Volume 5.9; Monocytes # (A) 0.5 k/uL (0-1.0); Monocytes % (A) 6 %; Mucus,Urine Many /hpf; Neutrophils # (A) 5.7 k/uL (1.3-7.7); Neutrophils % (A) 69 %; Nitrite,Urine Negative (Negative); PH, Urine 5.5 (5.0-8.0); Platelet Count 327 k/uL (150-450); Protein,Urine 1+ (Negative); RBC 4.57 m/uL (3.80-5.40); RBC,Urine 7 /hpf (0-5); RDW 12.6 % (11.5-15.5); Specific Gravity,Urine 1.026 (1.001-1.035); Squamous Epithelial Cell,Urine 20 /hpf (0-4); Urobilinogen,Urine <2.0 mg/dL (<2.0); WBC 8.2 k/uL (3.8-10.6); WBC,Urine 4 /hpf (0-5)
[2018-11-02 09:36] LABS: Albumin 3.7 g/dL (3.5-5.0); Calcium 9.4 mg/dL (8.4-10.2); Potassium 4.6 mmol/L (3.5-5.1); Total Bilirubin 1.7 mg/dL (0.2-1.3); Total Protein 6.8 g/dL (6.3-8.2)
--- NOTE | 2018-11-02 09:41 | XR ---
EXAMINATION TYPE: XR KUB DATE OF EXAM: 11/02/2018 CLINICAL DATA: 67 year-old female abdominal pain, PHH COMPARISON: 10/28/2016 FINDINGS: Lung bases are clear. No evidence for free intraperitoneal air. No dilated small bowel or air-fluid levels. Scattered air and stool seen throughout the colon extendi ng distally into the rectum. Also moderate overall stool burden. No suspicious calcifications identified. Scattered sutures throughout the abdomen are unchanged. IMPRESSION: 1. [id number] stool burden. 2.No evidence of bowel obstruction or free intraperitoneal air.
[2018-11-02 10:24] VITALS: BP 145/65; PULSE 80; RESP 16; TEMP 97.9
== END 2018-11-02 10:17 | disposition home or self-care (01) ==
LOC: EC 08:19
DX: K59.00 Constipation, unspecified (principal); E78.5 Hyperlipidemia, unspecified; Z86.73 Personal history of transient ischemic attack (TIA), and cerebral infarction without residual deficits; Z87.19 Personal history of other diseases of the digestive system; Z87.42 Personal history of other diseases of the female genital tract; Z90.710 Acquired absence of both cervix and uterus; Z79.890 Hormone replacement therapy; Z79.899 Other long term (current) drug therapy; Z91.048 Other nonmedicinal substance allergy status; Z88.2 Allergy status to sulfonamides
CPT/HCPCS: 36415; 74018; 80053; 81001; 82150; 83690; 85025; 96360; 99284

== ENCOUNTER → 2019-03-31 | Outpatient (CLI) | payer MEDICARE, BC ==
[2019-03-31 16:23] LABS: T4, Free (Free Thyroxine) 1.5 ng/dL (0.80-1.80)
== END | disposition home or self-care (01) ==
LOC: LABWHC1 10:16
PROVIDERS: ATTEND Internal Medicine Endocrinology, Diabetes & Metabolism
DX: R23.2 Flushing (principal)
CPT/HCPCS: 36415; 84439; 84443

== ENCOUNTER → 2019-05-19 | Outpatient (CLI) | payer MEDICARE, BC | END | disposition home or self-care (01) | LOC: LABWHC1 11:53 | PROVIDERS: ATTEND Internal Medicine Endocrinology, Diabetes & Metabolism | DX: E03.8 Other specified hypothyroidism (principal); R23.2 Flushing | CPT/HCPCS: 36415; 84443 ==

== ENCOUNTER → 2019-05-24 | Outpatient (CLI) | payer MEDICARE, BC ==
[~2019-05-24] MED LIST changes: -DEXAMETHASONE SOD PHOSPHATE 10 MG/ML 1 ML VIAL IV ONE; -DEXAMETHASONE SOD PHOSPHATE 4 MG/ML 1 ML VIAL IV ONE; -FAMOTIDINE 20 MG/2 ML VIAL IV ONE; -HYDROmorphone 1 MG/ML 1 ML SYRINGE IVP PRN; -LACTATED RINGERS 1,000 ML IV SCH; -LIDOCAINE 1% 20 ML VIAL (10MG/ML) FOR IV START INTRADERMA PRN; -ONDANSETRON 4 MG/2 ML VIAL IVP ONE; -SCOPOLAMINE 1.5MG/72HR PATCH TRANSDERM ONE; +SODIUM CHLORIDE 0.9% 500 ML 500 ML in EMPTY BAG 1 BAG IV PRN; -ceFAZolin 2 GM in SODIUM CHLORIDE 0.9% 100 ML IVPB ONE
[2019-05-24 09:52] VITALS: BP 155/83; PULSE 66; RESP 16; TEMP 98.4
== END | disposition home or self-care (01) ==
LOC: PROCWHC3 09:28
PROVIDERS: ATTEND Internal Medicine Endocrinology, Diabetes & Metabolism
DX: R23.2 Flushing (principal)
CPT/HCPCS: 36591; 83835

== ENCOUNTER → 2019-09-02 | Outpatient (CLI) | payer MEDICARE, BC ==
--- NOTE | 2019-09-03 08:25 | BD ---
EXAMINATION TYPE: Axial Bone Density DATE OF EXAM: 09/02/2019 COMPARISON: 12.03.2016 CLINICAL HISTORY: 68 YR OLD FEMALE.....ICD-10 CODE: N95.1 POST MENOPAUSAL Height: 63.5 Weight: 157 FRAX RISK QUESTIONS: NOTHING ADDITIONAL TO PUT HERE RISK FACTORS HISTORY OF: Active: YES Diet low in dairy products/other sources of calcium: YES Postmenopausal woman: YES AT ABOUT 52 YRS OLD Take estrogen and/or progesterone medications: YES, AND STILL ARE, ESTRADIOL Hyperparathyroidism: NO Adrenal Insufficiency: NO MEDICATIONS: Thyroid Medications: YES, SYNTHROID, FOR ABOUT 30 + YRS Additional Medications: STATIN FOR CHOLESTEROL, VIT D AND MULTIVITAMIN WITH CALCIUM Additional History: CHOLESTEROL, AND THYROID, OSTEOARTHRITIS EXAM MEASUREMENTS: Bone mineral densitometry was performed using the [employer] System. Bone mineral density as measured about the Lumbar spine is: ----- L1-L4(G/cm2): 1.213 T Score Values are as follows: ----- L1: -0.8 ----- L2: -0.4 ----- L3: 0.6 ----- L4: 1.4 ----- L1-L4: 0.3 Bone mineral density has: Increased 4.8% since study of: 12.03.2016 Bone mineral density about the R hip (g/cm2): 1.002 Bone mineral density about the L hip (g/cm2): 0.995 T Score values are as follows: -----R Neck: -1.1 -----L Neck: -1.3 -----R Total: 0.0 -----L Total: -0.1 Bone mineral density has: Decreased -0.5% since study of: 12.03.2016 FRAX%s: THERE IS A 9.2% CHANCE FOR A MAJOR OSTEOPOROTIC AND A 1.0% FOR HIP.....PROBABILITY FOR FX I N 10 YRS TIME IMPRESSION: Osteopenia NOTE: T-SCORE=SD OF THE YOUNG ADULT MEAN.
--- NOTE | 2019-09-03 14:16 | MM ---
Reason for exam: screening (asymptomatic). Last mammogram was performed 1 year and 1 month ago. History: Patient is postmenopausal, history of other cancer, and is nulliparous. Benign US left guided mammotome of the left breast, October 12, 2008. Benign left US cyst aspiration of the left breast, June 20, 2005. Taking estrogen for 4 months beginning at age 54. Taking progesterone for 4 months beginning at age 54. Physical Findings: A clinical breast exam by your physician is recommended on an annual basis and results should be correlated with mammographic findings. MG 3D Screening Mammo W/Cad Bilateral CC and MLO view(s) were taken. Prior study comparison: August 05, 2018, bilateral MG 3d screening mammo w/cad. June 05, 2017, bilateral MG 3d screening mammo w/cad. The breast tissue is heterogeneously dense. This may lower the sensitivity of mammography. Previous mammotome biopsy in the left breast. There is chronic nodularity bilaterally. No significant changes when compared with prior studies. ASSESSMENT: Benign, BI-RAD 2 RECOMMENDATION: Routine screening mammogram of both breasts in 1 year.
== END | disposition home or self-care (01) ==
LOC: RADMAMWWP 14:28
PROVIDERS: ATTEND Family Medicine
DX: Z12.31 Encounter for screening mammogram for malignant neoplasm of breast (principal); M85.80 Other specified disorders of bone density and structure, unspecified site
CPT/HCPCS: 77063; 77067; 77080

== ENCOUNTER → 2019-09-13 | Outpatient (CLI) | payer MEDICARE, BC ==
[2019-09-13 20:09] LABS: T4, Free (Free Thyroxine) 1.1 ng/dL (0.80-1.80)
== END | disposition home or self-care (01) ==
LOC: LABWHC1 11:26
PROVIDERS: ATTEND Internal Medicine Endocrinology, Diabetes & Metabolism
DX: E03.8 Other specified hypothyroidism (principal)
CPT/HCPCS: 36415; 84439; 84443

== ENCOUNTER → 2019-11-04 | Outpatient (CLI) | payer MEDICARE | END | disposition home or self-care (01) | LOC: LABWHC1 13:22 | PROVIDERS: ATTEND Internal Medicine Endocrinology, Diabetes & Metabolism | DX: E03.8 Other specified hypothyroidism (principal) | CPT/HCPCS: 36415; 84443 ==

== ENCOUNTER → 2020-10-23 | Outpatient (CLI) | payer MEDICARE ==
--- NOTE | 2020-10-24 13:30 | MM ---
Reason for exam: screening (asymptomatic). Last mammogram was performed 1 year and 2 months ago. History: Patient is postmenopausal, history of other cancer, and is nulliparous. Benign US left guided mammotome of the left breast, October 12, 2008. Benign left US cyst aspiration of the left breast, June 20, 2005. Taking estrogen for 4 months beginning at age 54. Taking progesterone for 4 months beginning at age 54. Physical Findings: A clinical breast exam by your physician is recommended on an annual basis and results should be correlated with mammographic findings. MG 3D Screening Mammo W/Cad Bilateral CC and MLO view(s) were taken. Prior study comparison: September 02, 2019, bilateral MG 3d screening mammo w/cad. August 05, 2018, bilateral MG 3d screening mammo w/cad. The breast tissue is heterogeneously dense. This may lower the sensitivity of mammography. No significant changes when compared with prior studies. ASSESSMENT: Benign, BI-RAD 2 RECOMMENDATION: Routine screening mammogram of both breasts in 1 year.
== END | disposition home or self-care (01) ==
LOC: RADMAMWWP 15:42
PROVIDERS: ATTEND Family Medicine
DX: Z12.31 Encounter for screening mammogram for malignant neoplasm of breast (principal)
CPT/HCPCS: 77063; 77067

== ENCOUNTER → 2020-12-18 | Outpatient (CLI) | payer MEDICARE | END | disposition home or self-care (01) | LOC: LABWHC1 16:40 | PROVIDERS: ATTEND Family Medicine | DX: Z01.812 Encounter for preprocedural laboratory examination (principal); Z20.822 Contact with and (suspected) exposure to COVID-19 | CPT/HCPCS: U0003; C9803 ==

== ENCOUNTER → 2021-09-25 | Outpatient (CLI) | payer MEDICARE ==
--- NOTE | 2021-09-25 11:44 | MR ---
EXAMINATION TYPE: MR angio head wo con DATE OF EXAM: 09/25/2021 COMPARISON: Same-day brain MRI. CT brain from 1 day earlier. HISTORY: Aneurysm. Headache. TECHNIQUE: Time of flight images focusing on the [place] were performed without contrast.. 2-D and 3-D postprocessing imaging is performed. FINDINGS: There is dominant left vertebral artery filling the basilar artery. Distal right vertebral artery is hypoplastic or occluded. There is a patent left posterior communicating artery. There is sm all caliber right P1 segment with improved filling of the right P2 segment due to patent posterior co mmunicating artery. There is small eccentric aneurysm beginning near origin of the left P1 segment ax ial image 98 measuring approximately 1.8 mm. This is felt at origin of a small branching vessel with varus anterior smaller caliber vessel noted near this level axial image 99. There are areas of narrowing of the distal internal carotid arteries bilaterally. There is patent ant erior communicating artery near image 108. There is focal medial eccentric aneurysm measuring 3.6 x 1 .7 mm of the distal right internal carotid artery axial image 96. There is focal 5.3 x 3.5 mm aneurys m at the left MCA trifurcation axial image 101. No significant stenosis clearly seen. 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 Additional smaller aneurysms distal right internal carotid artery and near origin of the left P1 segment in the posterior circulation not ed as detailed above. A Yellow level critical message alert has been initiated for Salazar Lozada MD via the [employer] Critical Results System on 09/25/2021 11:41 AM. This message alert has been sent to Salazar Lozada MD vi a the preferences provided by the clinician for the receipt of Radiology Critical Findings. Message I D [id number].
--- NOTE | 2021-09-25 11:46 | MR ---
EXAMINATION TYPE: MR brain wo/w con DATE OF EXAM: 09/25/2021 COMPARISON: CT brain from yesterday. Same day MRA [place]. HISTORY: Aneurysm. TECHNIQUE: Multiplanar, multisequence images of the brain and brainstem is performed without and with IV contras t, utilizing 7.5 mL intravenous Gadavist . FINDINGS: Diffusion weighted images demonstrate no evidence of a recent infarct or other diffusion ab normality. There is mild ventricular and sulcal prominence. Scattered areas of T2 hyperintensity are seen throughout the white matter bilaterally. Approximately 10-15 scattered lesions are seen. Larges t 7 mm lesion left frontal lobe at level of melendez radiata axial image 19 is noted. Lesions are nonsp ecific in appearance and distribution Midline structures demonstrate normal morphology. The craniocervical junction appears within normal limits. Post contrast images demonstrate no abnormal enhancement. The dural venous sinuses appear pa tent. Mild the moderate mucosal thickening in the inferior left maxillary sinus is redemonstrated. Gl obes are intact bilaterally. IMPRESSION: 1. No MRI evidence for a recent infarct. 2. Background mild diffuse cerebral atrophy and chronic small vessel ischemic change is noted.
== END | disposition home or self-care (01) ==
LOC: RADMRIMAIN 10:32
PROVIDERS: ATTEND Family Medicine
DX: I67.1 Cerebral aneurysm, nonruptured (principal); I67.82 Cerebral ischemia; G31.89 Other specified degenerative diseases of nervous system
CPT/HCPCS: 70544; 70553; A9585

== ENCOUNTER → 2021-10-10 | Outpatient (CLI) | payer MEDICARE ==
--- NOTE | 2021-10-10 19:10 | BD ---
EXAMINATION TYPE: Axial Bone Density DATE OF EXAM: 10/10/2021 COMPARISON: 09.02.2019 CLINICAL HISTORY: 70 YR OLD FEMALE......ICD-10 CODE: N95.1 MENOPAUSAL Height: 63.3 Weight: 158 FRAX RISK QUESTIONS: Current Tobacco Use: STOPPED, 1983 RISK FACTORS HISTORY OF: Postmenopausal woman: YES, AT 51 YRS OLD, WITH HORMONES, ESTRODYLE FOR ABOUT 19 YRS Hyperparathyroidism: NO Adrenal Insufficiency: NO MEDICATIONS: Thyroid Medications: YES, FOR 30+ YRS Additional Medications: HX OF SKIN CA, STATIN FOR CHOLESTEROL, MULTIVITAMIN, Additional History: SKIN CA, CHOLESTEROL, THYROID, EX SMOKER, EXAM MEASUREMENTS: Bone mineral densitometry was performed using the [employer] System. Bone mineral density as measured about the Lumbar spine is: ----- L1-L4(G/cm2): 1.142 T Score Values are as follows: ----- L1: -1.9 ----- L2: -0.5 ----- L3: -0.2 ----- L4: 1.2 ----- L1-L4: -0.3 Bone mineral density has: Decreased -4.0% since study of: 09.02.2019 Bone mineral density about the R hip (g/cm2): 1.006 Bone mineral density about the L hip (g/cm2): 0.986 T Score values are as follows: -----R Neck: -1.1 -----L Neck: -1.3 -----R Total: 0.0 -----L Total: -0.2 Bone mineral density has: Decreased -0.2% since study of: 09.02.2019 FRAX%s: THERE IS A 9.5% CHANCE FOR A MAJOR OSTEOPOROTIC FX AND A 1.2% FOR HIPS......PROBABILITY FOR FX IN 10 YRS TIME IMPRESSION: No evidence for osteopenia or osteoporosis. NOTE: T-SCORE=SD OF THE YOUNG ADULT MEAN.
== END | disposition home or self-care (01) ==
LOC: RADBDWWP 10:01
PROVIDERS: ATTEND Family Medicine
DX: M85.89 Other specified disorders of bone density and structure, multiple sites (principal); N95.1 Menopausal and female climacteric states
CPT/HCPCS: 77080

== ENCOUNTER → 2021-10-26 | Outpatient (CLI) | payer MEDICARE ==
--- NOTE | 2021-10-26 09:17 | FL ---
EXAMINATION TYPE: FL barium enema DATE OF EXAM: 10/26/2021 CLINICAL HISTORY: failed colonoscopy TECHNIQUE: An air contrast barium enema study is performed. FL time 2 min 8 sec. 600 mL Polibar Plus COMPARISON: None. FINDINGS: Tunnel Kiln Repairer view of the abdomen shows overall non-obstructive bowel gas pattern.No evidence of a ny mass or polyp, obstructing or constricting lesion throughout the colon. Scattered sigmoid and desc ending colonic diverticulosis without diverticulitis. Appendix was filled and appeared normal. The t erminal ileum was refluxed and appears within normal limits. IMPRESSION: Mild diverticulosis without diverticulitis. Otherwise unremarkable study.
== END | disposition home or self-care (01) ==
LOC: RADFLMAIN 07:37
PROVIDERS: ATTEND Surgery
DX: K57.90 Diverticulosis of intestine, part unspecified, without perforation or abscess without bleeding (principal)
CPT/HCPCS: 74270

== ENCOUNTER → 2021-11-09 | Outpatient (CLI) | payer MEDICARE ==
--- NOTE | 2021-11-12 08:47 | MM ---
Reason for exam: screening (asymptomatic). Last mammogram was performed 1 year and 1 month ago. History: Patient is postmenopausal, history of other cancer, and is nulliparous. Benign US left guided mammotome of the left breast, October 12, 2008. Benign left US cyst aspiration of the left breast, June 20, 2005. Taking estrogen for 70 years beginning at age 54. Taking progesterone for 70 years beginning at age 54. Physical Findings: A clinical breast exam by your physician is recommended on an annual basis and results should be correlated with mammographic findings. MG 3D Screening Mammo W/Cad Bilateral CC and MLO view(s) were taken. XCCL view(s) were taken of the left breast. Prior study comparison: October 23, 2020, bilateral MG 3d screening mammo w/cad. September 02, 2019, bilateral MG 3d screening mammo w/cad. The breast tissue is heterogeneously dense. This may lower the sensitivity of mammography. Previous mammotome biopsy in the left breast. Asymmetric breast tissue in the left breast is stable. There is no discrete abnormality. ASSESSMENT: Incomplete: need additional imaging evaluation, BI-RAD 0 RECOMMENDATION: Ultrasound of the left breast. (palpable lump) [facility] will attempt to contact patient to return for ultrasound.
== END | disposition home or self-care (01) ==
LOC: RADMAMWWP 09:44
PROVIDERS: ATTEND Family Medicine
DX: Z12.31 Encounter for screening mammogram for malignant neoplasm of breast (principal); Z78.0 Asymptomatic menopausal state
CPT/HCPCS: 77063; 77067

== ENCOUNTER → 2021-11-15 | Outpatient (CLI) | payer MEDICARE ==
--- NOTE | 2021-11-15 13:32 | USB ---
Reason for exam: additional evaluation requested from abnormal screening. History: Patient is postmenopausal, history of other cancer, and is nulliparous. Benign US left guided mammotome of the left breast, October 12, 2008. Benign left US cyst aspiration of the left breast, June 20, 2005. Taking estrogen for 70 years beginning at age 54. Taking progesterone for 70 years beginning at age 54. Physical Findings: A clinical breast exam by your physician is recommended on an annual basis and results should be correlated with mammographic findings. US Breast Workup Limited LT Technologist: Lisa Kennedy Left limited breast ultrasound including focal area of concern, retroareolar and axilla demonstrates no cystic or solid lesion seen. These results were verbally communicated with the patient and result sheet given to the patient on 11/15/21. ASSESSMENT: Negative, BI-RAD 1 RECOMMENDATION: Return to routine screening mammogram schedule for both breasts. Manage patient on a clinical basis.
== END | disposition home or self-care (01) ==
LOC: RADUSWWP 12:51
PROVIDERS: ATTEND Family Medicine
DX: R92.8 Other abnormal and inconclusive findings on diagnostic imaging of breast (principal); Z78.0 Asymptomatic menopausal state

== ENCOUNTER → 2023-02-26 | Outpatient (CLI) | payer MEDICARE ==
[2023-02-26 15:02] LABS: HCT 40.9 % (37.2-46.3); HGB 13.3 d/dL (12.0-15.0); MCH 29.8 pg (27.0-32.0); MCHC 32.5 d/dL (32.0-37.0); MCV 91.7 FL (80.0-97.0); Mean Platelet Volume 9.8 FL (9.5-12.2); NRBC Per 100 WBC 0 X 10*3/uL (0.00-0.01); Platelet Count 259 X 10*3/uL (140-440); RBC 4.46 X 10*6/uL (4.10-5.20); RDW 12.4 % (11.5-14.5); WBC 4.36 X 10*3/uL (4.50-10.00)
[2023-02-26 15:41] LABS: Blood Urea Nitrogen 14.1 mg/dL (9.0-27.0); Carbon Dioxide 28.6 mmol/L (21.6-31.8); Chloride 100 mmol/L (96-109); Potassium 5.1 mmol/L (3.5-5.5); Sodium 139 mmol/L (135-145)
== END | disposition home or self-care (01) ==
LOC: LABWHC1 10:29
PROVIDERS: ATTEND Internal Medicine Interventional Cardiology
DX: Z01.812 Encounter for preprocedural laboratory examination (principal); R06.02 Shortness of breath
CPT/HCPCS: 36415; 80051; 82565; 84520; 85027

== ENCOUNTER 2023-03-10 10:30 | Day surgery (SDC) | payer MEDICARE ==
[~2023-03-10 10:30] MED LIST changes: +ALPRAZolam 0.25 MG TAB PO PRN; +ALPRAZolam 0.5 MG TAB PO PRN; +ASPIRIN 325 MG TAB PO STA; +NITROGLYCERIN SL TABS 0.4 MG TAB SUBLINGUAL PRN; +SODIUM CHLORIDE 0.9% 1,000 ML in EMPTY BAG 1 BAG IV SCH; -SODIUM CHLORIDE 0.9% 500 ML 500 ML in EMPTY BAG 1 BAG IV PRN
[2023-03-10 11:13] VITALS: TEMP 98.5
[2023-03-10] MEDS ORDERED: HEPARIN SODIUM 1,000 UN/ML (10ML VL) ONE (12:31)
[2023-03-10] MEDS ORDERED: VERAPAMIL 2.5 MG/ML 2 ML AMP ONE (12:31)
[2023-03-10] MEDS ORDERED: MIDAZOLAM 2 MG/2 ML VIAL IVP ONE (12:47)
[2023-03-10] MEDS ORDERED: LIDOCAINE 1% INJ 10MG/ML (5 ML VIAL-PF) SQ ONE (12:48)
[2023-03-10] MEDS ORDERED: VERAPAMIL SYRINGE (5 MG/10 ML) IVP ONE (12:49)
[2023-03-10] MEDS ORDERED: HEPARIN SODIUM 1,000 UN/ML (10ML VL) IVP ONE (12:51)
[2023-03-10] MEDS ORDERED: IOPAMIDOL-370 100ML BTL INJ ONE (12:57)
[2023-03-10] MEDS ORDERED: RX INFO: IV CONTRAST WAS GIVEN 1 EACH MISC MISCELLANE PRN (13:01)
--- NOTE | 2023-03-10 13:05 | P.PCN ---
Date of Procedure: 03/10/23 Operative Findings: CARDIAC CATHETERIZATION PERFORMING PHYSICIAN: Domenico Odell MD, RPVI PROCEDURE PERFORMED: 1. Selective right and left coronary angiogram 2. Left heart catheterization INDICATION: Shortness of breath in this 72-year-old female patient with underwent a stress test showed an anterior ischemia COMPLICATION: None APPROACH: Right radial artery LEVEL OF SEDATION: Moderate with a sedation length of 10 minutes PROCEDURE DESCRIPTION: After obtaining an informed consent, the patient was brought to cardiac seed analysis laboratory assistant. Local anesthesia was performed using lidocaine subcutaneously. The right radial artery was cannulated using Seldinger technique, the guidewire passed easily, following that we advanced a 5-[place] sheath dilator assembly, the wire and dilator were removed and sheath was flushed. Following that, 2 mg of verapamil along with 5000 unit heparin were given. Selective right and left coronary angiogram using a 6-[place] JR4 and JL 3.5 catheters. Following that we did left heart catheterization using 6-[place] pigtail catheter. The procedure was completed there was no complication. SELECTIVE CORONARY ANGIOGRAM: The right coronary artery: large-caliber vessel and dominant vessel was mild disease by the ostium Left main: angiographically normal The left circumflex: angiographically normal and gives rises into an OM which appeared to be normal The left anterior descending artery: is angiographically normal and gives rises into a diet which appeared to be angiographically normal HEMODYNAMICS: the LVEDP was 12 mmHg with no significant gradient across aortic valve CONCLUSION: 1. Mild disease involving the ostial RCA 2. Normal left sided filling pressure POSTPROCEDURE MANAGEMENT: medical treatment
[2023-03-10] MEDS ORDERED: SODIUM CHLORIDE 0.9% 1,000 ML IV SCH (13:15)
[2023-03-10 13:52] VITALS: RESP 16
[2023-03-10 16:03] VITALS: BP 122/72; PULSE 66
== END 2023-03-10 16:07 | disposition home or self-care (01) ==
LOC: CATHCVL 10:30
PROVIDERS: ATTEND Internal Medicine Interventional Cardiology
DX: I25.10 Atherosclerotic heart disease of native coronary artery without angina pectoris (principal); R06.02 Shortness of breath
CPT/HCPCS: 93458; C1769; C1894; J2250; J2001; J1644; Q9967

== ENCOUNTER → 2023-11-13 | Outpatient (CLI) | payer MEDICARE ==
--- NOTE | 2023-11-13 14:48 | MM ---
Reason for Exam: Screening (asymptomatic). Last screening mammogram was performed 12 month(s) ago. Patient History: Menarche at age 11. Patient has no children. Left ovary removed at age 62. Right ovary removed at age 41. Hysterectomy at age 62. Postmenopausal. Currently using Estrogen, beginning at age 54 for 16 years. Currently using Progesterone, beginning at age 54 for 16 years. 10/12/2008, Benign Core Biopsy on the left side. 06/20/2005, Benign Cyst Aspiration on the left side. Risk Values: Beatris 5 year model risk: 2.5%. NCI Lifetime model risk: 6.6%. Prior Study Comparison: 10/23/2020 Bilateral Screening Mammogram, [facility]. 11/09/2021 Bilateral Screening Mammogram, [facility]. 11/11/2022 Bilateral MG 3D screening mammo w/cad, [facility]. Tissue Density: The breast tissue is heterogeneously dense. This may lower the sensitivity of mammography. Findings: Analyzed By CAD. There is no suspicious group of microcalcifications or new suspicious mass. Overall Assessment: Negative, BI-RAD 1 Management: Screening Mammogram of both breasts in [address] [facility] will attempt to contact patient to return for supplemental views and ultrasound if indicated. Patient should continue monthly self-breast exams. A clinical breast exam by your physician is recommended on an annual basis. This exam should not preclude additional follow-up of suspicious palpable abnormalities. Note on Beatris scores and lifetime risk: 1. A Beatris score greater than 3% is considered moderate risk. If this is the case, consider specialist referral to assess eligibility for a risk reducing agent. 2. If overall lifetime risk for the development of breast cancer is 20% or higher, the patient may qualify for future screening with alternating mammogram and breast MRI. Electronically signed and approved by: Zoltan Sevilla DO
--- NOTE | 2023-11-13 19:27 | BD ---
EXAMINATION TYPE: Axial Bone Density DATE OF EXAM: 11/13/2023 CLINICAL HISTORY: 72 years old Female. ICD-10 CODE: N95.1 MENOPAUSAL AND FEMALE CLIMA Height: 63 Weight: 145 FRAX RISK QUESTIONS: 3. Menopause before 45: no at 51 yrs old Current Tobacco Use: former RISK FACTORS HISTORY OF: MEDICATIONS: Thyroid Medications: yes, synthroid, for about 33 yrs, HRT for about 19 yrs, estradiol now cholesterol meds, hx of skin ca, and prior smoker, tremor meds, antiseizure meds EXAM MEASUREMENTS: Bone mineral densitometry was performed using the Merus System. Bone mineral density as measured about the Lumbar spine is: ----- L1-L4(G/cm2): 1.155 T Score Values are as follows: ----- L1: -1.7 ----- L2: -0.8 ----- L3: 0.1 ----- L4: 1.1 ----- L1-L4: -0.2 Z Score Values are as follows: ----- L1: 0.0 ----- L2: 0.9 ----- L3: 1.8 ----- L4: 2.8 ----- L1-L4: 1.5 Bone mineral density has: Increased 1.1% since study of: 10.10.2021 Bone mineral density about the R hip (g/cm2): 0.965 Bone mineral density about the L hip (g/cm2): 0.942 T Score values are as follows: -----R Neck: -1.1 -----L Neck: -1.7 -----R Total: -0.3 -----L Total: -0.5 Z Score values are as follows: -----R Neck: 0.7 -----L Neck: 0.1 -----R Total: 1.3 -----L Total: 1.1 Bone mineral density has: Decreased -4.3% since study of: 10.10.2021 FRAX%s: The graph provided illustrates a 11.4% chance for a major osteoporotic fx and a 2.2% chance f or the hips probability for fx in 10 years time. IMPRESSION: Osteopenia (T Score between -2.5 and -1). There is slightly increased risk of fracture and the patient may be considered for treatment. Re-Screen 2-5 years. NOTE: T-SCORE=SD OF THE YOUNG ADULT MEAN.
== END | disposition home or self-care (01) ==
LOC: RADMAMWWP 09:48
PROVIDERS: ATTEND Family Medicine
DX: Z12.31 Encounter for screening mammogram for malignant neoplasm of breast (principal); M85.89 Other specified disorders of bone density and structure, multiple sites; N95.1 Menopausal and female climacteric states
CPT/HCPCS: 77063; 77067; 77080

== ENCOUNTER → 2024-11-08 | Outpatient (CLI) | payer MEDICARE ==
--- NOTE | 2024-11-08 08:48 | MR ---
EXAMINATION TYPE: MR brain wo/w con DATE OF EXAM: 11/08/2024 8:12 AM COMPARISON: None. CLINICAL INDICATION: Female, 73 years old with history of R41.3 AMNESIA, Amnesia, hx aneurysms. TECHNIQUE: Multiplanar, multiecho imaging on a 3.0 Jennifer magnet is performed through the brain. Stud y is performed within 24 hours of arrival to the hospital.Multiplanar, multiecho imaging on a 3.0 Skyla la magnet is performed through the knee. IV Contrast: 6 mL Gadobutrol (None, if empty) FINDINGS: The craniovertebral junction is normal. The pituitary is normal. Diffusion-weighted imaging is performed. No abnormal hyperintensity is present to suggest an acute i ntracranial infarct or acute ischemic change. There are some scattered subcortical white matter changes which are nonspecific. Differential diagnos is could include migraine headaches, vasculitis, chronic white matter ischemic changes, multiple scle rosis. No abnormal enhancement is evident. Ventricles and sulci are appropriate for the patient age. Some mild mucosal thickening within the maxillary sinuses. Mastoid air cells are clear. Mild mucosal thickening is wider cells. Frontal sinuses are clear. Sphenoid sinus has mucosal thickening. IMPRESSION: 1. Scattered subcortical white matter changes are nonspecific. Differential diagnosis could include m igraine headaches, vasculitis, chronic white matter ischemic changes, multiple sclerosis. [facility], , 11/08/2024 8:46 AM
== END | disposition home or self-care (01) ==
LOC: RADMRIMAIN 07:01
PROVIDERS: ATTEND Internal Medicine Geriatric Medicine
DX: R90.82 White matter disease, unspecified (principal); I67.82 Cerebral ischemia; G35 Multiple sclerosis; R41.3 Other amnesia
CPT/HCPCS: 70553; A9585

== ENCOUNTER → 2024-12-15 | Outpatient (CLI) | payer MEDICARE ==
--- NOTE | 2024-12-15 10:57 | MM ---
Reason for Exam: Screening (asymptomatic). Last mammogram was performed 1 year(s) and 2 month(s) ago. Patient History: Menarche at age 11. Patient has no children. Left ovary removed at age 62. Right ovary removed at age 41. Hysterectomy at age 62. Postmenopausal. Currently using Estrogen, beginning at age 54 for 16 years. Currently using Progesterone, beginning at age 54 for 16 years. 10/12/2008, Benign Core Biopsy on the left side. 06/20/2005, Benign Cyst Aspiration on the left side. Risk Values: Beatris 5 year model risk: 2.5%. NCI Lifetime model risk: 6.2%. Prior Study Comparison: 11/09/2021 Bilateral Screening Mammogram, [facility]. 11/11/2022 Bilateral MG 3D screening mammo w/cad, [facility]. 11/13/2023 Bilateral MG 3D screening mammo w/cad, [facility]. Tissue Density: The breasts are heterogeneously dense, which may obscure small masses. Findings: Analyzed By CAD. There is no suspicious group of microcalcifications or new suspicious mass in either breast. Overall Assessment: Benign, BI-RAD 2 Management: Screening Mammogram of both breasts in 1 year. . Patient should continue monthly self-breast exams. A clinical breast exam by your physician is recommended on an annual basis. This exam should not preclude additional follow-up of suspicious palpable abnormalities. Note on Beatris scores and lifetime risk: 1. A Beatris score greater than 3% is considered moderate risk. If this is the case, consider specialist referral to assess eligibility for a risk reducing agent. 2. If overall lifetime risk for the development of breast cancer is 20% or higher, the patient may qualify for future screening with alternating mammogram and breast MRI. [facility], , 12/15/2024 10:54 AM. Electronically signed and approved by: Liborio Vincent M.D. Radiolog[facility]
== END | disposition home or self-care (01) ==
LOC: RADMAMWWP 09:19
PROVIDERS: ATTEND Internal Medicine Geriatric Medicine
DX: Z12.31 Encounter for screening mammogram for malignant neoplasm of breast (principal); R92.333 Mammographic heterogeneous density, bilateral breasts; Z78.0 Asymptomatic menopausal state
CPT/HCPCS: 77063; 77067